=== PATIENT | male | born 1965 | race Caucasian/White ===

== ENCOUNTER 2017-04-18 04:03 | Emergency (ER) | payer OTHER ==
[~2017-04-18] VITALS: Ht 177.8 cm; Wt 104.1 kg
[2017-04-18] MEDS ORDERED: MOTRIN600 MG PO (08:32)
[2017-04-18] MEDS ORDERED: ROXICODONE5 MG PO (08:32)
[2017-04-18 08:46] VITALS: BP 159/98
== END 2017-04-18 08:48 | disposition home or self-care (01) ==
LOC: EME 04:03
DX: S20.212A Contusion of left front wall of thorax, initial encounter (principal); S30.0XXA Contusion of lower back and pelvis, initial encounter; S39.012A Strain of muscle, fascia and tendon of lower back, initial encounter; W01.0XXA Fall on same level from slipping, tripping and stumbling without subsequent striking against object, initial encounter; Y99.0 Civilian activity done for income or pay; E11.9 Type 2 diabetes mellitus without complications
CPT/HCPCS: 71100; 72100; 72220; 99281; 99284